=== PATIENT | male | born 1955 | race Two or more races ===

== ENCOUNTER 2016-07-02 22:16 | Emergency (ER) | payer OTHER ==
[~2016-07-02] VITALS: Ht 177.8 cm; Wt 93.9 kg
[2016-07-02] MEDS ORDERED: IBUPROFEN 400 MG TABLET PO ONE (23:00)
[2016-07-02] MEDS ORDERED: IBUPROFEN 400 MG TABLET ONE (23:05)
[2016-07-02] MEDS ORDERED: MORPHINE SULFATE INJ 2 MG/ML DISP.SYRIN ONE (23:42)
[2016-07-03] MEDS ORDERED: MORPHINE SULFATE INJ 2 MG/ML DISP.SYRIN IV ONE
[2016-07-03 00:42] VITALS: BP 155/75
== END 2016-07-03 00:43 | disposition home or self-care (01) ==
LOC: ER 22:21
DX: S39.012A Strain of muscle, fascia and tendon of lower back, initial encounter (principal); S70.01XA Contusion of right hip, initial encounter; Z88.6 Allergy status to analgesic agent; V03.90XA Pedestrian on foot injured in collision with car, pick-up truck or van, unspecified whether traffic or nontraffic accident, initial encounter; Y93.89 Activity, other specified; Y92.413 State road as the place of occurrence of the external cause; Y99.8 Other external cause status
CPT/HCPCS: 72110; 73502; 96374; 99284; A4606; J2270; L0172; Z7610; 73510-TC